=== PATIENT | female | born 1955 | race Caucasian/White ===

== ENCOUNTER → 2016-05-06 | Outpatient (CLI) | payer BC ==
--- NOTE | 2016-05-18 07:42 | MM ---
Reason for exam: screening (asymptomatic). Last mammogram was performed 2 years and 8 months ago. History: Patient is postmenopausal. Took hormonal contraceptives beginning at age 22. Took estrogen beginning at age 56. Physical Findings: A clinical breast exam by your physician is recommended on an annual basis and results should be correlated with mammographic findings. MG 3D Screening Mammo W/Cad Bilateral CC and MLO view(s) were taken. Prior study comparison: September 13, 2013, mammogram, performed at [place]. December 22, 2011, mammogram, performed at [place]. There are scattered fibroglandular densities. No significant changes when compared with prior studies. ASSESSMENT: Negative, BI-RAD 1 RECOMMENDATION: Routine screening mammogram of both breasts in 1 year.
== END | disposition home or self-care (01) ==
LOC: RADMAMWWP 15:51
PROVIDERS: ATTEND Family Medicine
DX: Z12.31 Encounter for screening mammogram for malignant neoplasm of breast (principal)
CPT/HCPCS: 77063; G0202

== ENCOUNTER → 2016-07-28 | Outpatient (CLI) | payer BC ==
--- NOTE | 2016-07-28 19:13 | XR ---
Right hand HISTORY: Right thumb pain 3 views of the right hand There is joint space loss, hypertrophic change, marginal spurring at the carpometacarpal joint of the first digit. Bone mineralization is otherwise reduced. Alignment is maintained, there are degenerati ve changes at the intercarpal joints. IMPRESSION: Osteoarthritis.
== END | disposition home or self-care (01) ==
LOC: RADXRMAIN 17:09
PROVIDERS: ATTEND Nurse Practitioner Family
DX: M19.041 Primary osteoarthritis, right hand (principal)

== ENCOUNTER → 2018-07-13 | Outpatient (CLI) | payer BC ==
--- NOTE | 2018-07-14 09:11 | MM ---
Reason for exam: screening (asymptomatic). Last mammogram was performed 2 years and 2 months ago. History: Patient is postmenopausal. Took hormonal contraceptives beginning at age 22. Took estrogen beginning at age 56. Physical Findings: A clinical breast exam by your physician is recommended on an annual basis and results should be correlated with mammographic findings. MG 3D Screening Mammo W/Cad Bilateral CC and MLO view(s) were taken. Prior study comparison: May 06, 2016, bilateral MG 3d screening mammo w/cad. September 13, 2013, mammogram, performed at [place]. There are scattered fibroglandular densities. No significant changes when compared with prior studies. ASSESSMENT: Negative, BI-RAD 1 RECOMMENDATION: Routine screening mammogram of both breasts in 1 year.
== END | disposition home or self-care (01) ==
LOC: RADMAMWWP 08:35
PROVIDERS: ATTEND Obstetrics & Gynecology
DX: Z12.31 Encounter for screening mammogram for malignant neoplasm of breast (principal)
CPT/HCPCS: 77063; 77067

== ENCOUNTER → 2020-05-09 | Outpatient (CLI) | payer BC ==
--- NOTE | 2020-05-10 11:18 | MM ---
Reason for exam: screening (asymptomatic). Last mammogram was performed 1 year and 10 months ago. History: Patient is postmenopausal. Took hormonal contraceptives beginning at age 22. Took estrogen beginning at age 56. Physical Findings: A clinical breast exam by your physician is recommended on an annual basis and results should be correlated with mammographic findings. MG 3D Screening Mammo W/Cad Bilateral CC and MLO view(s) were taken. Prior study comparison: July 13, 2018, bilateral MG 3d screening mammo w/cad. May 06, 2016, bilateral MG 3d screening mammo w/cad. There are scattered fibroglandular densities. Developing focal asymmetry left upper outer quadrant. ASSESSMENT: Incomplete: need additional imaging evaluation, BI-RAD 0 RECOMMENDATION: Special view mammogram of the left breast. If lesion persists on supplemental views, image directed ultrasound is recommended. [facility] will attempt to contact patient to return for supplemental views and ultrasound if indicated.
== END ==
LOC: RADMAMWWP 11:08
PROVIDERS: ATTEND Obstetrics & Gynecology
DX: Z12.31 Encounter for screening mammogram for malignant neoplasm of breast (principal); Z78.0 Asymptomatic menopausal state
CPT/HCPCS: 77063; 77067

== ENCOUNTER → 2020-05-27 | Outpatient (CLI) | payer BC ==
--- NOTE | 2020-05-27 14:23 | MM ---
Reason for exam: additional evaluation requested from abnormal screening. Last mammogram was performed 1 month ago. History: Patient is postmenopausal. Took hormonal contraceptives for 5 years beginning at age 22. Took estrogen for 2 years beginning at age 56. Took progesterone for 1 year 6 months. Physical Findings: Nurse did not find any significant physical abnormalities on exam. MG 3D Work Up W/Cad LT Spot compression CC, spot compression MLO, and LM view(s) were taken of the left breast. Prior study comparison: May 09, 2020, bilateral MG 3d screening mammo w/cad. July 13, 2018, bilateral MG 3d screening mammo w/cad. The breast tissue is heterogeneously dense. This may lower the sensitivity of mammography. Area of concern is improved. 6 month follow up recommended. These results were verbally communicated with the patient and result sheet given to the patient on 05/27/20. ASSESSMENT: Probably benign, BI-RAD 3 RECOMMENDATION: Follow-up diagnostic mammogram of the left breast in 6 months.
== END ==
LOC: RADMAMWWP 13:43
PROVIDERS: ATTEND Obstetrics & Gynecology
DX: R92.8 Other abnormal and inconclusive findings on diagnostic imaging of breast (principal); Z78.0 Asymptomatic menopausal state
CPT/HCPCS: 77061; 77065

== ENCOUNTER → 2020-12-26 | Outpatient (CLI) | payer BC ==
--- NOTE | 2020-12-27 08:40 | MM ---
Reason for exam: follow-up at short interval from prior study. Last mammogram was performed 7 months ago. History: Patient is postmenopausal. Took hormonal contraceptives for 5 years beginning at age 22. Took estrogen for 2 years beginning at age 56. Took progesterone for 1 year 6 months. Physical Findings: Nurse did not find any significant physical abnormalities on exam. MG 3D Diag Mammo W/Cad LT CC and MLO view(s) were taken of the left breast. Prior study comparison: May 27, 2020, left breast MG 3d work up w/cad LT. May 09, 2020, bilateral MG 3d screening mammo w/cad. There are scattered fibroglandular densities. There is chronic nodularity in the left breast. No significant new findings when compared with previous films. These results were verbally communicated with the patient and result sheet given to the patient on 12/26/20. ASSESSMENT: Benign, BI-RAD 2 RECOMMENDATION: Return to routine screening mammogram schedule for both breasts. Back on schedule for May 2021.
== END | disposition home or self-care (01) ==
LOC: RADMAMWWP 14:31
PROVIDERS: ATTEND Obstetrics & Gynecology
DX: R92.8 Other abnormal and inconclusive findings on diagnostic imaging of breast (principal)
CPT/HCPCS: 77061; 77065

== ENCOUNTER → 2022-02-27 | Outpatient (CLI) | payer BC ==
--- NOTE | 2022-03-02 10:45 | MM ---
Reason for Exam: Screening (asymptomatic). Last mammogram was performed 1 year(s) and 9 month(s) ago. Patient History: Menarche at age 18. First Full-Term at age 22. Postmenopausal. Estrogen for 2 years from age 56 until age 58. Progesterone for 1 year, 6 months. Hormonal Contraceptives for 5 years from age 22 until age 27. Risk Values: Viviana 5 year model risk: 1.4%. NCI Lifetime model risk: 5.1%. Prior Study Comparison: 05/09/2020 Bilateral Screening Mammogram, [facility]. 05/27/2020 Left Diagnostic Mammogram, [facility]. 12/26/2020 Left Diagnostic Mammogram, [facility]. Tissue Density: There are scattered fibroglandular densities. Findings: Analyzed By CAD. There is no suspicious group of microcalcifications or new suspicious mass in either breast. Overall Assessment: Negative, BI-RAD 1 Management: Screening Mammogram of both breasts in 1 year. A clinical breast exam by your physician is recommended on an annual basis and results should be correlated with mammographic findings. [facility] will attempt to contact patient to return for supplemental views and ultrasound if indicated. Electronically signed and approved by: Marc Sevilla DO
== END | disposition home or self-care (01) ==
LOC: RADMAMWWP 10:21
PROVIDERS: ATTEND Obstetrics & Gynecology
DX: Z12.31 Encounter for screening mammogram for malignant neoplasm of breast (principal); Z78.0 Asymptomatic menopausal state
CPT/HCPCS: 77063; 77067

== ENCOUNTER → 2023-07-28 | Outpatient (CLI) | payer MEDICARE, BC ==
--- NOTE | 2023-07-29 10:55 | MR ---
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 COMPARISON: TECHNIQUE: Multiplanar multi-sequence imaging was performed without contrast. Post contrast imaging was performed. Post IV contrast subtraction images were also submitted for review. IV Contrast: 7.5 cc Gadavist FINDINGS: LOWER CHEST: No gross irregularity. ABDOMEN Liver: No evidence for cirrhosis. Signal dropout on chemical shift out of phase imaging. Gallbladder and Bile ducts: No evidence for ductal dilation, or biliary stricture or evidence of chol edocholithiasis. The gallbladder is within normal limits. Pancreas: No ductal dilation. No evidence for solid mass. Spleen: Normal for size. Adrenal glands: Unremarkable. Kidneys: No evidence for obstructive uropathy. There are bilateral renal stones in the right superior medial aspect measuring 13 mm and left posterior lateral aspect measuring 21 x 14 mm. These are inte rmediate T2 and dominantly low T1 signal. Postcontrast imaging demonstrates no enhancement of either one of these lesions. There may be mild intrinsic T1 signal layering within the left lesion along the edge.. Stomach and Bowel: No evidence for bowel wall thickening or evidence for obstruction. Multiple duoden al diverticula present Retroperitoneum/Peritoneum: No evidence of pneumoperitoneum or free fluid. Vasculature: No aortic aneurysm. Musculoskeletal: The osseous structures appear intact. Lymph Nodes: No gross evidence for lymphadenopathy. Abdominal wall: Fat-containing umbilical hernia. IMPRESSION: 1. Bilateral Bosniak type I and type II equivalent renal cysts. No suspicious renal lesions. 2. Hepatic steatosis.
== END | disposition home or self-care (01) ==
LOC: RADMRIMAIN 18:00
PROVIDERS: ATTEND Urology
DX: K76.0 Fatty (change of) liver, not elsewhere classified (principal); N28.1 Cyst of kidney, acquired; D41.01 Neoplasm of uncertain behavior of right kidney; N28.89 Other specified disorders of kidney and ureter
CPT/HCPCS: 74183; A9585